=== PATIENT | female | born 1960 | race Caucasian/White ===

== ENCOUNTER 2022-03-05 00:09 | Emergency (ER) | payer OTHER ==
[2022-03-05 00:19] VITALS: BP 140/88; PULSE 78; RESP 17; TEMP 97.8; BMI 22.8
[2022-03-05] MEDS ORDERED: DIPHTH,PERTUSS(ACELL),TET 0.5 ML DISP.SYRIN IM ONE ×2 (00:20→00:21)
== END 2022-03-05 00:27 | disposition home or self-care (01) ==
LOC: FER 00:09
PROC: 3E0234Z Introduction of Serum, Toxoid and Vaccine into Muscle, Percutaneous Approach (ICD-10-PCS; principal; 2022-03-05)
DX: S61.012A Laceration without foreign body of left thumb without damage to nail, initial encounter (principal); W25.XXXA Contact with sharp glass, initial encounter
CPT/HCPCS: 90715; 99284-25